=== PATIENT | female | born 1955 | race Two or more races ===

== ENCOUNTER → 2023-10-12 | Outpatient (REF) | payer MEDICARE, OTHER | LOC: M SFHCWAGY 17:30 | PROVIDERS: ATTEND Nurse Practitioner Family | DX: Z12.72 Encounter for screening for malignant neoplasm of vagina (principal); Z11.51 Encounter for screening for human papillomavirus (HPV); N95.2 Postmenopausal atrophic vaginitis | CPT/HCPCS: 87624; G0123 ==